=== PATIENT | female | born 1995 | race Caucasian/White ===

== ENCOUNTER 2025-01-16 00:24 | Emergency (ER) | payer OTHER ==
[~2025-01-16] VITALS: Ht 165.1 cm; Wt 83.0 kg
[2025-01-16 01:03] VITALS: O2SAT 97
[2025-01-16 01:32] LABS: HEMATOCRIT. 41.8 % (36.0-48.0); HEMOGLOBIN. 13.7 g/dL (12.0-16.0); MEAN CORPUSCULAR HEMOGLOBIN 30.5 pg (28.0-32.0); MEAN CORPUSCULAR HGB CONC 32.9 g/dL (31.0-37.0); MEAN CORPUSCULAR VOLUME 92.9 fL (81.0-99.0); MEAN PLATELET VOLUME 7.8 fl (7.4-10.4); PLATELET 203 x1000/uL (130-400); RED CELL DISTRIBUTION WIDTH 17.1 % (11.6-14.6); WHITE BLOOD COUNT 3.1 x1000/uL (4.5-11.0)
[2025-01-16 01:33] LABS: DIFFERENTIAL COMMENT 1
[2025-01-16 01:45] LABS: HCG SCREEN NEGATIVE
[2025-01-16 01:47] LABS: CHLORIDE 100 mEq/L (98-107); SODIUM 136 mEq/L (136-145)
[2025-01-16 01:48] LABS: CARBON DIOXIDE 25 mEq/L (21-32)
[2025-01-16 01:49] LABS: CALCIUM 9.7 mg/dL (8.7-10.4)
[2025-01-16 01:53] LABS: CREATININE 0.6 mg/dL (0.6-1.0); GLUCOSE 185 mg/dL (70-105)
[2025-01-16 01:54] LABS: UREA NITROGEN BLOOD 8 mg/dL (9-23)
[2025-01-16 01:55] LABS: ALANINE AMINOTRANSFERASE 99 IU/L (10-49); ALBUMIN 4.3 g/dL (3.2-4.8); ASPARTATE AMINOTRANSFERASE 148 IU/L (<34)
[2025-01-16 01:56] LABS: BILIRUBIN DIRECT 0.1 mg/dL (<=3.0); BILIRUBIN TOTAL 0.3 mg/dL (0.1-1.0); PLATELET ESTIMATE NORMAL
[2025-01-16] MEDS ORDERED: ONDA4TAB50 MT (02:58)
[2025-01-16] MEDS ORDERED: L10 MT (02:58)
[2025-01-16] MEDS: ONDANSETRON 4MG ODT PO ONE (03:09)
[2025-01-16] MEDS: CHLORDIAZEPOXIDE 25MG CAPSULE PO ONE (03:09)
[2025-01-16 03:18] VITALS: BP 173/92; PULSE 114; RESP 20; TEMP 36.6; O2SAT 99
== END 2025-01-16 03:22 | disposition home or self-care (01) ==
LOC: ER 00:24
DX: F10.939 Alcohol use, unspecified with withdrawal, unspecified (principal); Z91.040 Latex allergy status; Y90.9 Presence of alcohol in blood, level not specified
CPT/HCPCS: 99283; 80076; 80048; 84703; 83690; 85025; 36415; Q0162